=== PATIENT | male | born 1960 | race Caucasian/White ===

== ENCOUNTER 2019-09-01 07:54 | Outpatient (CLI) | payer BC, SELFPAY ==
--- NOTE | 2019-09-01 14:30 | XR_ITS ---
WS: [id number] XR KUB [id number] REASON FOR EXAM: NEPHROLITHIASIS FINDINGS: There is evidence of scattered gas and fecal stasis throughout the abdomen. No definite renal calculus are identified but there is abundance of feces overriding both kidneys. Spina bifida occulta at the S1 segment is seen. XR/XR KUB [id number] IMPRESSION: No definite calculus by radiographic evaluation
== END 2019-09-01 07:55 | disposition home or self-care (01) ==
PROVIDERS: Family Provider Family Medicine; PCP Family Medicine; Visit Provider Nurse Practitioner Family
DX: N20.0 Calculus of kidney (principal)
CPT/HCPCS: 74018

== ENCOUNTER 2019-09-02 07:23 | Outpatient (CLI) | payer BC, SELFPAY ==
[2019-09-02] MEDS: iohexol 300 mg/mL 100 mL Btl IV (08:25)
[2019-09-02 08:35] LABS: Blood Urea Nitrogen 13 mg/dL (6-20); Glomerular Filtration Rate 77.3 mL/min (90-130)
--- NOTE | 2019-09-02 09:00 | CT_ITS ---
WS: [id number] CT abdomen pelvis wo/w [id number] REASON FOR EXAM: Hematuria IV CONTRAST ADMINISTERED: None. TOTAL EXAM DLP: 3895.[address] scans at [facility] use at least one of these dose optimization techniques: automat ed exposure control; mA and/or kV adjustment per patient size (includes targeted exams where dose is matched to clinical indication); or iterative reconstruction. FINDINGS: The lower lung castillo were normal. In the liver there is evidence of 2 partially enhancing lesions which appear to be enhancing from the periphery and consistent with hemangiomas both are small one measures 8.14 mm the other 9.64 mm. The gallbladder was normal no stones are noted. The pancreas head, body, tail are normal. The spleen and stomach were normal. The aorta inferior vena cava were normal. The adrenal glands show no adenomatous changes. The left kidney is a 3.15 mm stone in the mid parenchyma. The right kidney was normal. The ureters were normal bilaterally The descending colon sigmoid colon show diverticulosis no diverticulitis. [place] the right colon was normal the appendix was not distended or abnormal. Small bowel patterns are normal. The bladder is contracted there is no wall lesions seen. The prostate was normal. The rectum normal. No hernias are identified and inguinal canal are the umbilical regions. CT/CT abdomen pelvis wo/w [id number] IMPRESSION: Small stone in the left kidney nonobstructed Diverticulosis of the descending sigmoid colon 2 small hemangiomas of the liver.
== END 2019-09-02 07:24 | disposition home or self-care (01) ==
LOC: RAD 07:26
PROVIDERS: Family Provider Family Medicine; PCP Family Medicine; Visit Provider Urology
DX: R31.9 Hematuria, unspecified (principal); N20.0 Calculus of kidney; K57.30 Diverticulosis of large intestine without perforation or abscess without bleeding; D18.09 Hemangioma of other sites
CPT/HCPCS: 74178; 80053; 81001; 82565; 84520; 88112